=== PATIENT | male | born 1970 | race Caucasian/White ===

== ENCOUNTER 2020-04-23 12:45 | Emergency (ER) | payer SELFPAY ==
[~2020-04-23] VITALS: Ht 165.1 cm; Wt 68.0 kg
[2020-04-23 12:50] VITALS: BP 119/77
--- NOTE | 2020-04-23 12:50 | NUR ---
PT AMBULATED TO BED 8.
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
--- NOTE | 2020-04-23 13:33 | NUR ---
RAD AT BEDSIDE
[2020-04-23 14:02] VITALS: BP 120/72
== END 2020-04-23 14:02 | disposition home or self-care (01) ==
LOC: MED 12:45
DX: S60.222A Contusion of left hand, initial encounter (principal); V49.9XXA Car occupant (driver) (passenger) injured in unspecified traffic accident, initial encounter; Y93.89 Activity, other specified; Y92.89 Other specified places as the place of occurrence of the external cause; Y99.8 Other external cause status
CPT/HCPCS: 73130; 99283